=== PATIENT | female | born 2000 | race Two or more races ===

== ENCOUNTER 2021-08-01 21:58 | Emergency (ER) | payer MEDICAID, OTHER ==
[~2021-08-01] VITALS: Ht 160 cm; Wt 120.2 kg
[2021-08-01 23:33] LABS: Hematocrit 44.3 % (36.0-46.0); Hemoglobin 14.9 g/dL (12.2-16.2); Mean Corpuscular Hemoglobin 29.7 pg (28.0-32.0); Mean Corpuscular Hgb Conc. 33.7 g/dL (32.0-36.0); Red Blood Cells 5.03 10^6/uL (4.0-5.20); White Blood Cell 5.4 10^3/uL (4.4-10.8)
[2021-08-01 23:40] LABS: Band Neutrophils % (manual) 0; Basophils % (manual) 0 (0.0-2.0); Blast Cells 0; Metamyelocytes % 0; Myelocytes % 0; Promyelocytes % 0
[2021-08-01 23:50] LABS: Albumin 3.3 g/dL (3.4-5.0); BUN/Creatinine Ratio 11.1; Calcium 8.7 mg/dL (8.5-10.1); Salicylate 2.3 mg/dL (2.8-20.0)
[2021-08-01 23:51] LABS: Acetaminophen < 2.0 ug/mL (10-30)
[2021-08-01 23:53] LABS: Total Protein 7.2 g/dL (6.4-8.2)
[2021-08-01 23:54] LABS: Potassium 2.9 mmol/L (3.5-5.1)
[2021-08-02 00:03] LABS: Eosinophils % (manual) 3 (0-7); Lymphocytes % (manual) 46 (10.0-50.0); Monocytes % (manual) 4 (0-12); Reactive Lymphocytes 11
[2021-08-02 03:07] LABS: Urine Bacteria FEW /hpf (None Seen); Urine Blood Negative /uL (Negative); Urine Hyaline Cast FEW /lpf (0 - 2); Urine Mucus FEW (None Seen); Urine Specific Gravity 1.024 (1.001-1.035); Urine WBC 11 /hpf (0 - 5)
[2021-08-02 03:18] LABS: Alcohol, Urine < 3.0 mg/dL (0-10); Amphetamine Screen, Urine NEGATIVE (NEGATIVE); Barbiturate Scree,Urine NEGATIVE (NEGATIVE); Benzodiazephine Screen, Urine NEGATIVE (NEGATIVE); Cannabinoid Screen, Urine POSITIVE (NEGATIVE); Cocaine Screen, Urine NEGATIVE (NEGATIVE); Opiate Scree,Urine NEGATIVE (NEGATIVE); Phencyclidine Screen, Urine NEGATIVE (NEGATIVE)
[2021-08-02] MEDS ORDERED: POTASSIUM EFFERVESENT TAB 25 MEQ PO ONE (10:30)
[2021-08-02] MEDS ORDERED: POTASSIUM EFFERVESENT TAB 25 MEQ GT ONE (18:45)
[2021-08-04 15:26] VITALS: BP 96/62
== END 2021-08-04 15:28 ==
LOC: ER 21:58
DX: R45.851 Suicidal ideations (principal); F32.9 Major depressive disorder, single episode, unspecified; F17.210 Nicotine dependence, cigarettes, uncomplicated; Z20.822 Contact with and (suspected) exposure to COVID-19
CPT/HCPCS: 36415; 80053; 80307; 80329; 81001; 84132; 84702; 85007; 85027; 87426

== ENCOUNTER 2024-12-18 10:27 | Emergency (ER) | payer MEDICAID ==
[~2024-12-18] VITALS: Ht 160 cm; Wt 106.0 kg
--- NOTE | 2024-12-18 10:31 | ED.PDOC ---
History of Present Illness HPI Comments 24-year-old female who comes in with chief complaint of right shoulder pain. The patient states that she was getting dressed and as she was putting on her clothes she accidentally popped her left shoulder out when she fell down she said. At this time she states that the pain has decreased but at the time of the injury, the pain was a 9/10. She had a similar episode approximately three years ago which she had a dislocation to the right shoulder. The patient denies any other complaints at this time. The patient was given Tylenol 1 g IV piggyback for the pain. She states that it has now decreased significantly. Time Seen by MD: 10:27 Primary Care Provider: NONE Reviewed Notes: Nurses Notes, Agents' Records Clerk Notes, Medications, Allergies (No allergies to medications) Allergies: Coded Allergies: NO KNOWN ALLERGIES (Unverified , 08/01/21) Information Source: Patient, Emergency Med Personnel Mode of Arrival: EMS Severity: Moderate Timing: Minutes (Occurred 40 minutes prior to arrival) Duration: Since onset Prehospital treatment: Mental Health Worker, IVF, Pain Meds (Tylenol 1 g IV piggyback) Location: Right shoulder pain with possible dislocation Past Medical History PAST MEDICAL HISTORY: Depression Surgical History: Tonsillectomy DOBBY LOOM CH[employer] PEGGER History: No Pertinent DOBBY LOOM CH[employer] PEGGER History Family History Family History: Family hx of Cancer Social History Smoker: Quit Less Than 1 Year, Cigarettes Alcohol: Denies ETOH Use Drugs: Marijuana Lives In: Home Constitutional: denies: chills, diaphoresis, fatigue, fever, malaise, sweats, weakness, others EENTM: denies: blurred vision, double vision, ear bleeding, ear discharge, ear drainage, ear pain, ear ringing, eye pain, eye redness, hearing loss, mouth pain, mouth swelling, nasal discharge, nose bleeding, nose congestion, nose pain, photophobia, tearing, throat pain, throat swelling, voice changes, others Respiratory: denies: cough, hemoptysis, orthopnea, SOB at rest, shortness of breath, SOB with excertion, stridor, wheezing, others Cardiovascular: denies: chest pain, dizzy spells, diaphoresis, Dyspnea on exertion, edema, irregular heart beat, left arm pain, lightheadedness, palpitations, PND, syncope, others Gastrointestinal: denies: abdomen distended, abdominal pain, blood streaked bowels, constipated, diarrhea, dysphagia, difficulty swallowing, hematemesis, melena, nausea, poor appetite, poor fluid intake, rectal bleeding, rectal pain, vomiting, others Genitourinary: denies: abnormal vagina bleeding, burning, dyspareunia, dysuria, flank pain, frequency, hematuria, incontinence, pain, , vagina discharge, urgency, others Neurological: denies: dizziness, fainting, headache, left sided numbness, left sided weakness, numbness, paresthesia, pre-existing deficit, right sided numbness, right sided weakness, seizure, speech problems, tingling, tremors, weakness, others Musculoskeletal: reports: others (Right shoulder pain); denies: back pain, gout, joint pain, joint swelling, muscle pain, muscle stiffness, neck pain Integumetry: denies: bruises, change in color, change in hair/nails, dryness, laceration, lesions, lumps, rash, wounds, others Allergic/Immunocompromised: denies: Difficulty Healing, Frequent Infections, Hives, Itching, others Hematologic/Lymphatic: denies: anemia, blood clots, easy bleeding, easy bruising, swollen glands, others Endocrine: denies: excessive hunger, excessive sweating, excessive thirst, excessive urination, flushing, intolerance to cold, intolerance to heat, unexplained weight gain, unexplained weight loss, others Psychiatric: denies: anxiety, bipolar disorder, depression, hopeless, panic disorder, schizophrenia, sleepless, suicidal, others Physical Exam General Appearance: Moderate Distress HEENT: Normal ENT Inspection, Pharynx Normal, TMs Normal Neck: Full Range of Motion, Non-Tender, Normal, Normal Inspection Respiratory: Chest Non-Tender, Lungs Clear, No Accessory Muscle Use, No Respiratory Distress, Normal Breath Sounds Cardiovascular: No Edema, No JVD, No Murmur, No Gallop, Normal Peripheral Pulses, Regular Rate/Rhythm Breast Exam: Deferred Gastrointestinal: No Organomegaly, Non Tender, No Pulsatile Mass, Normal Bowel Sounds, Soft Genitalia: Deferred Pelvic: Deferred Rectal: Deferred Extremities: No calf tenderness, Normal capillary refill, No pedal edema Musculoskeletal : Location: Right Extremity Location: Shoulder Apperance: Deformity, Limited ROM, Tenderness: Severe Neurologic: Alert, certified physician assistant II-XII nml as Tested, No Motor Deficits, Normal Affect, Normal Mood, No Sensory Deficits Cerebellar Function: Normal Reflexes: Normal Skin: Dry, Normal Color, Warm Lymphatic: No Adenopathy Was a procedure done? Was a procedure done?: No Differential Dx Considerations may include: Right shoulder pain X-Ray, Labs, Meds, VS Vital Signs Date Time Temp Pulse Resp B/P (MAP) Pulse Ox O2 Delivery O2 Flow Rate FiO2 12/18/24 11:03 98.1 86 17 100/45 (63) 92 98.1 12/18/24 11:03 86 17 92 Room Air 12/18/24 10:32 97.9 103 18 106/78 (87) 98 97.9 X-ray of right shoulder is negative for any fracture or dislocation The patient was being discharged and will follow up with the primary care doctor The patient will return to the emergency department's the condition worsens The patient was diagnosis is right shoulder strain The patient was placed in a sling to the right shoulder Images Reviewed?: Images reviewed and evaluated by me Time of 1ST Reevaluation: 10:30 Reevaluation 1ST: Unchanged Patient Education/Counseling: Diagnosis, Treatment, Prognosis, Need For Follow Up Family Education/Counseling: No Family Present Departure 1 Departure Time of Disposition: 11:35 Impression: Primary Impression: Right shoulder strain Qualified Codes: S46.911A - Strain of unspecified muscle, fascia and tendon at shoulder and upper arm level, right arm, initial encounter Disposition: HOME / SELF CARE / HOMELESS Condition: Fair Discharged With: Self Critical Care Note Critical Care Time?: No Stability Stability form required: No Heart Score Heart Score: Heart Score Response (Comments) Value History N/A 0 EKG N/A 0 Age N/A 0 Risk Factors N/A 0 Troponin N/A 0 Total 0 JEREMY LAKE MD Dec 18, 2024 10:31
[2024-12-18 11:03] VITALS: BP 100/45; PULSE 86; RESP 17; TEMP 98.1; O2SAT 92
--- NOTE | 2024-12-18 11:33 | DVH ---
EXAM: XY R SHOULDER 2+ VIEW XRAY HISTORY: trauma COMPARISON: None TECHNIQUE: Four views of the right shoulder were performed. FINDINGS: No acute fracture or dislocation are identified about the right shoulder. No significant degenerativ e changes or loss of subacromial space. IMPRESSION: 1. No fracture or dislocation in the right shoulder.
[2024-12-18] MEDS ORDERED: TRAM-626 PO (11:37)
[2024-12-18] MEDS: HYDROcodone-ACET 10/325MG TAB PO ONE (12:08)
== END 2024-12-18 12:31 | disposition home or self-care (01) ==
LOC: ER 10:27 → EDBD 10:27 → ER 12:31
DX: S46.911A Strain of unspecified muscle, fascia and tendon at shoulder and upper arm level, right arm, initial encounter (principal); Z87.891 Personal history of nicotine dependence; Z90.89 Acquired absence of other organs; X50.1XXA Overexertion from prolonged static or awkward postures, initial encounter; Y93.89 Activity, other specified; Y92.89 Other specified places as the place of occurrence of the external cause; Y99.8 Other external cause status
CPT/HCPCS: 73030